=== PATIENT | female | born 1950 | race Caucasian/White ===

== ENCOUNTER 2017-04-20 10:21 | Day surgery (SDC) | payer BC ==
[~2017-04-20 10:21] MED LIST: ACET-812 PO; AMLO1CAP PO; ASPI-611 PO; CALC-1197 PO; CLOB50FO8 TP; CYCL-394 PO; DOXY-200 PO; ERGO400C PO; HYDR-3717 PO; MULT-1141 PO
[2017-04-20] MEDS ORDERED: ACET-2812 PO (10:47)
[2017-04-20] MEDS ORDERED: DULO-31 PO (10:50)
[2017-04-20 11:50] LABS: BASOPHILS % (AUTO) 0.7 % (0-1); EOSINOPHILS # (AUTO) 0.3 X10'3 (0-0.9); EOSINOPHILS % (AUTO) 4.1 % (0-6); LYMPHOCYTES # (AUTO) 1.6 X10'3 (1.1-4.8); LYMPHOCYTES % (AUTO) 23.3 % (21-51); MEAN CORPUSCULAR HEMOGLOBIN 31.1 PG (27.0-31.0); MEAN CORPUSCULAR HGB CONC 35.3 % (33.0-36.5); MEAN CORPUSCULAR VOLUME 88.2 FL (78-98); MEAN PLATELET VOLUME 8.6 FL (7.4-10.4); MONOCYTES # (AUTO) 0.6 X10'3 (0-0.9); MONOCYTES % (AUTO) 8.1 % (2-12); NEUTROPHILS # (AUTO) 4.4 X10'3 (1.8-7.7); NEUTROPHILS % (AUTO) 63.8 % (42-75); PRE OP HEMATOCRIT 37.7 % (35.0-45.0); PRE OP HEMOGLOBIN 13.3 g/dL (12.0-16.0); PRE OP PLATELET COUNT 256 X10'3 (140-440); RED BLOOD COUNT 4.27 X10'6 (4.20-5.60); RED CELL DISTRIBUTION WIDTH 14.2 % (11.5-14.5)
[2017-04-20 12:00] LABS: PRE OP PROTIME 10.4 SECONDS (9.0-12.0)
[2017-04-20 12:04] LABS: ALBUMIN 4.2 G/DL (3.4-5.0); ALBUMIN/GLOBULIN RATIO 1.2 (1.1-1.5); ALKALINE PHOSPHATASE 78 IU/L (46-116); BLOOD UREA NITROGEN 22 MG/DL (7-18); BUN/CREATININE RATIO 20.4 (6.6-38.0); CALCIUM 9.2 MG/DL (8.5-10.1); CHLORIDE 104 MMOL/L (99-107); CREATININE 1.08 MG/DL (0.40-0.90); PRE OP ALT 41 U/L (30-65); PRE OP ANION GAP 9 (8-16); PRE OP AST 24 U/L (10-37); PRE OP BILIRUB, TOTAL 0.6 MG/DL (0.0-1.0); PRE OP GLUCOSE 92 MG/DL (70-104); PRE OP POTASSIUM 4.1 MMOL/L (3.4-5.1); PRE OP SODIUM 142 MMOL/L (135-145); TOTAL CARBON DIOXIDE 29.1 MMOL/L (24-32); TOTAL PROTEIN 7.8 G/DL (6.4-8.2); eGFR 51 ML/MIN
== END 2017-04-20 16:00 | disposition home or self-care (01) ==
LOC: PRE-OP 10:21
PROVIDERS: ATTEND Surgery
DX: K43.2 Incisional hernia without obstruction or gangrene (principal); E66.9 Obesity, unspecified; M19.90 Unspecified osteoarthritis, unspecified site; I10 Essential (primary) hypertension; Z53.8 Procedure and treatment not carried out for other reasons; Z86.73 Personal history of transient ischemic attack (TIA), and cerebral infarction without residual deficits; Z98.890 Other specified postprocedural states; Z90.5 Acquired absence of kidney; Z79.82 Long term (current) use of aspirin; Z79.01 Long term (current) use of anticoagulants; Z79.899 Other long term (current) drug therapy; Z88.6 Allergy status to analgesic agent; Z99.2 Dependence on renal dialysis; Z88.3 Allergy status to other anti-infective agents; Z88.8 Allergy status to other drugs, medicaments and biological substances
CPT/HCPCS: 36415; 71046; 80053; 85025; 85610; 85730; 86885; 86900; 86901; 87070; 93005

== ENCOUNTER 2017-12-31 08:55 | Emergency (ER) | payer BC, MEDICARE ==
[~2017-12-31] VITALS: Ht 154.9 cm; Wt 97.0 kg
[~2017-12-31 08:55] MED LIST changes: +ACET-76 PO; -ACET-812 PO; +ACET325C PO; +DICL100G15 TOP; -DOXY-200 PO; +DULO-31 PO; -ERGO400C PO
[2017-12-31 08:59] VITALS: BP 143/73
[2017-12-31] MEDS ORDERED: ACET-3068 PO (09:36)
== END 2017-12-31 09:46 | disposition home or self-care (01) ==
LOC: ER 08:55
DX: S86.811A Strain of other muscle(s) and tendon(s) at lower leg level, right leg, initial encounter (principal); I12.9 Hypertensive chronic kidney disease with stage 1 through stage 4 chronic kidney disease, or unspecified chronic kidney disease; N18.9 Chronic kidney disease, unspecified; E66.01 Morbid (severe) obesity due to excess calories; Z86.73 Personal history of transient ischemic attack (TIA), and cerebral infarction without residual deficits; Z98.890 Other specified postprocedural states; Z56.0 Unemployment, unspecified; Z88.5 Allergy status to narcotic agent; Z88.6 Allergy status to analgesic agent; Z88.1 Allergy status to other antibiotic agents; Z88.8 Allergy status to other drugs, medicaments and biological substances; Z88.2 Allergy status to sulfonamides; Z79.82 Long term (current) use of aspirin; Z79.899 Other long term (current) drug therapy; W01.0XXA Fall on same level from slipping, tripping and stumbling without subsequent striking against object, initial encounter; Y93.89 Activity, other specified; Y92.89 Other specified places as the place of occurrence of the external cause; Y99.8 Other external cause status
CPT/HCPCS: 73564; 99284

== ENCOUNTER 2019-02-01 09:06 | Outpatient (CLI) | payer OTHER ==
[2019-02-01] VITALS (10 sets, daily range): BP systolic 140–161; BP diastolic 79–90
[~2019-02-01] VITALS: Ht 157.5 cm; Wt 98.0 kg
[~2019-02-01 09:06] MED LIST changes: -ACET325C PO; +ACET325C3 PO
[2019-02-01] MEDS ORDERED: nitroGLYCERIN 0.4mg SUBLingual tab SL PRN (11:00)
[2019-02-01] MEDS ORDERED: regadenoson 0.4mg/5ml syringe IV ONE (11:00)
[2019-02-01] MEDS ORDERED: aminophylline 250mg/10ml inj. IV PRN (11:00)
[2019-02-01] MEDS ORDERED: normal saline 500ml IV soln 500 ML IV ONE (11:00)
== END 2019-02-01 23:59 | disposition home or self-care (01) ==
LOC: RAD 09:06
PROVIDERS: ATTEND Internal Medicine Cardiovascular Disease
DX: Z01.810 Encounter for preprocedural cardiovascular examination (principal); I10 Essential (primary) hypertension; R07.9 Chest pain, unspecified
CPT/HCPCS: 76937; 78452; 93017; A9500; J0280; J2785; J7040

== ENCOUNTER 2023-01-21 07:24 | Day surgery (SDC) | payer MEDICARE, OTHER ==
[2023-01-13 15:50] LABS: ALBUMIN 4.2 G/DL (3.4-5.0); ALBUMIN/GLOBULIN RATIO 1.2 (1.1-1.5); ALKALINE PHOSPHATASE 95 IU/L (46-116); BLOOD UREA NITROGEN 65 MG/DL (7-18); BUN/CREATININE RATIO 41.9 (10.0-20.0); CALCIUM 9.6 MG/DL (8.5-10.1); CHLORIDE 105 MMOL/L (99-107); CREATININE 1.55 MG/DL (0.40-0.90); PRE OP ALT 28 U/L (30-65); PRE OP ANION GAP 11 (8-16); PRE OP AST 17 U/L (10-37); PRE OP BILIRUB, TOTAL 0.5 MG/DL (0.0-1.0); PRE OP GLUCOSE 122 MG/DL (70-104); PRE OP POTASSIUM 4.4 MMOL/L (3.4-5.1); PRE OP SODIUM 137 MMOL/L (135-145); TOTAL CARBON DIOXIDE 20.8 MMOL/L (24-32); TOTAL PROTEIN 7.8 G/DL (6.4-8.2); eGFR 33 ML/MIN
[2023-01-13 17:14] LABS: BASOPHILS % (AUTO) 0.3 % (0-1); EOSINOPHILS % (AUTO) 0 % (0-6); LYMPHOCYTES # (AUTO) 1.1 X10'3 (1.1-4.8); LYMPHOCYTES % (AUTO) 9.3 % (21-51); MEAN CORPUSCULAR HEMOGLOBIN 31.1 PG (27.0-31.0); MEAN CORPUSCULAR HGB CONC 33.7 g/dL (33.0-36.5); MEAN CORPUSCULAR VOLUME 92.5 FL (78-98); MEAN PLATELET VOLUME 8.8 FL (7.4-10.4); MONOCYTES # (AUTO) 0.5 X10'3 (0-0.9); MONOCYTES % (AUTO) 4.2 % (2-12); NEUTROPHILS # (AUTO) 10.4 X10'3 (1.8-7.7); NEUTROPHILS % (AUTO) 86.2 % (42-75); PRE OP HEMATOCRIT 32.6 % (35.0-45.0); PRE OP PLATELET COUNT 296 X10'3 (140-440); PRE OP WHITE BLOOD COUNT 12.1 10'3 (4.8-10.8); RED BLOOD COUNT 3.53 X10'6 (4.20-5.60); RED CELL DISTRIBUTION WIDTH 13.4 % (11.5-14.5)
[~2023-01-21] VITALS: Ht 154.9 cm; Wt 90.0 kg
[2023-01-21] VITALS (8 sets, daily range): BP systolic 87–166; BP diastolic 59–122; PULSE 57–64; RESP 12–16; TEMP 97.7; O2SAT 96–100
[~2023-01-21 07:24] MED LIST changes: +ASCO-134 PO; +ATOR40TA72 PO; +BIOT10004 PO; -CALC-1197 PO; +CALC-1215 PO; -DICL100G15 TOP; +DOCUMENT DATE & TIME OF BETA-BLOCKER PO ONE; -DULO-31 PO; +METO-395 PO; +cefazolin 2gm/D5W 100mL 100 ML IV ONE; +famotidine 20mg tablet PO ONE; +ringers solution, lacted 1,000 ML IV SCH
[2023-01-21] MEDS ORDERED: labetalol 20mg/4ml (5mg/ml) syringe IV PRN (08:35)
[2023-01-21] MEDS ORDERED: ondansetron/PF 4mg/2ml inj IV PRN (08:35)
[2023-01-21] MEDS ORDERED: ringers solution, lacted 1,000 ML IV SCH (08:35)
[2023-01-21] MEDS ORDERED: acetaminophen 1,000mg/100ml IV 100 ML IV PRN (08:35)
[2023-01-21] MEDS ORDERED: HYDROmorphone/PF 0.2 MG/ML SYRINGE IV PRN ×2 (08:35)
[2023-01-21] MEDS ORDERED: hydrALAZINE 20mg/ml inj. IV PRN (08:35)
[2023-01-21] MEDS ORDERED: fentaNYL/PF 50MCG/1 ML 2ML syringe IV PRN ×2 (08:35)
[2023-01-21] MEDS ORDERED: proCHLORperazine 10 MG/2 ml inj IV PRN (08:35)
[2023-01-21] MEDS ORDERED: midazolam 1 mg/ML 2ml injection ONE (09:55)
[2023-01-21] MEDS ORDERED: fentaNYL/PF 50MCG/1 ML 2ML syringe ONE (09:55)
[2023-01-21] MEDS ORDERED: LIDOcaine 0.5% (5mg/ml) 50ml vial ONE (09:56)
[2023-01-21] MEDS ORDERED: BUPIVAcaine/PF 2.5mg/ml (0.25%) 10ml vial ONE (10:00)
[2023-01-21] MEDS ORDERED: propofol inj 20 ML IV ONE (10:56)
--- NOTE | 2023-01-21 10:59 | NUR ---
Received from OR via STRETCHER, accompanied by Anesthesiologist BRETT and report given by Anesthesiolgist. PT IS WIDE AWAKE AND ALERT. O2 DC'D ON ARRIVAL... MAINTAINING SAO2 AT >96%. DENIES OPERATIVE SITE PAIN, BUT REPORTS STOMACH DISCOMFORT THAT MAY BE NAUSEA OR PAIN. MONITOR SR, BORDERLINE SB.20 G IV PATENT TO R AC. MOVING ALL EXTREMITIES. Addendum: 01/21/23 at 1135 by [place] Stahl RN Amended: Links added.
--- NOTE | 2023-01-21 11:20 | NUR ---
PT HAS SPLINT TO R MIDDLE FINGER - STATES SHE CUT HER FINGER A WEEK AGO AND WAS SEEN AT [facility]. FINGER WAS SUTURED, AND THERE IS A SPLINT IN PLACE. SHE IS ABLE TO REMOVE SPLINT. DISSOVABLE SUTURES IN PLACE. NO S/S INFECTION. FINGER TIP IS SOMEWHAT MITRA. DR. ABREU EXAMINED THE FINGER AND STATES IT MAY BE DRESSED W/ GAUZE DRESSING. STATES HEALING WNL. Addendum: 01/21/23 at 1139 by Florida Stahl RN Amended: Links added.
--- NOTE | 2023-01-21 11:59 | NUR ---
PT FULLY AWAKE AND ALERT. EXPERIENCED NAUSEA/STOMACH DISCOMFORT ON ADMISSION - TOOK WATER, APPLESAUSE AND CRACKERS WHICH LED TO EMESIS OF SMALL AMOUNT OF CLEAR MUCOUSY FLUID. MEDICATED W/ ZOFRAN W/ RELIEF OF NAUSEA/STOMACH DISCOMFORT. NO OPERATIVE SITE PAIN. L FORARM ELEVATED AND ICE IN PLACE. AMBULATED TO TOILET IN ROOM AND VOIDED "SMALL" AMOUNT. NO LIGHTHEADEDNESS WHEN UPRIGHT AND W/ AMBULATION. IV DC'D. DISCHARGED TO SPOUSE VIA WITHOUT INCIDENT. Addendum: 01/21/23 at 1243 by Florida Stahl RN Amended: Links added. Addendum: 01/21/23 at 1244 by Florida Stahl RN DRY GAUZE DRESSING TO R MIDDLE FINGER. INSTRUCTED ON BASIC WOUND CARE.
== END 2023-01-21 11:59 | disposition home or self-care (01) ==
LOC: PAS 07:24
PROVIDERS: ATTEND Orthopaedic Surgery Hand Surgery
DX: M18.12 Unilateral primary osteoarthritis of first carpometacarpal joint, left hand (principal); M65.332 Trigger finger, left middle finger; G56.02 Carpal tunnel syndrome, left upper limb; I10 Essential (primary) hypertension; G47.33 Obstructive sleep apnea (adult) (pediatric); G89.29 Other chronic pain; Z86.73 Personal history of transient ischemic attack (TIA), and cerebral infarction without residual deficits; Z96.653 Presence of artificial knee joint, bilateral; Z98.890 Other specified postprocedural states; Z93.2 Ileostomy status; Z90.5 Acquired absence of kidney; Z86.14 Personal history of Methicillin resistant Staphylococcus aureus infection; Z88.8 Allergy status to other drugs, medicaments and biological substances; Z88.5 Allergy status to narcotic agent; Z91.041 Radiographic dye allergy status; Z79.82 Long term (current) use of aspirin; Z79.899 Other long term (current) drug therapy
CPT/HCPCS: 25310; 25447; 26055; 36415; 64721; 80053; 82948; 85025; 93005; J0690; J2250; J2405; J2704; J3010; J3490; J7030; J7120; Z7506; Z7508; Z7512; A4215; A4618; A7000

== ENCOUNTER 2024-01-23 05:56 | Day surgery (SDC) | payer OTHER, MEDICARE ==
[2024-01-12 09:59] LABS: BASOPHILS % (AUTO) 0.4 % (0-1); EOSINOPHILS # (AUTO) 0.1 X10'3 (0-0.9); EOSINOPHILS % (AUTO) 1.7 % (0-6); LYMPHOCYTES # (AUTO) 1.2 X10'3 (1.1-4.8); LYMPHOCYTES % (AUTO) 17.7 % (21-51); MEAN CORPUSCULAR HEMOGLOBIN 32.3 PG (27.0-31.0); MEAN CORPUSCULAR HGB CONC 34.2 g/dL (33.0-36.5); MEAN CORPUSCULAR VOLUME 94.6 FL (78-98); MEAN PLATELET VOLUME 7.8 FL (7.4-10.4); MONOCYTES # (AUTO) 0.4 X10'3 (0-0.9); MONOCYTES % (AUTO) 6.5 % (2-12); NEUTROPHILS # (AUTO) 4.8 X10'3 (1.8-7.7); NEUTROPHILS % (AUTO) 73.7 % (42-75); PRE OP HEMATOCRIT 34.3 % (35.0-45.0); PRE OP HEMOGLOBIN 11.7 g/dL (12.0-16.0); PRE OP PLATELET COUNT 234 X10'3 (140-440); PRE OP WHITE BLOOD COUNT 6.6 10'3 (4.8-10.8); RED BLOOD COUNT 3.63 X10'6 (4.20-5.60); RED CELL DISTRIBUTION WIDTH 14.2 % (11.5-14.5)
[2024-01-12 10:18] LABS: ALBUMIN 3.8 G/DL (3.4-5.0); ALBUMIN/GLOBULIN RATIO 1.2 (1.1-1.5); ALKALINE PHOSPHATASE 58 IU/L (46-116); BLOOD UREA NITROGEN 46 MG/DL (7-18); BUN/CREATININE RATIO 32.9 (10.0-20.0); CALCIUM 9.1 MG/DL (8.5-10.1); CHLORIDE 106 MMOL/L (99-107); PRE OP ALT 42 U/L (30-65); PRE OP ANION GAP 8 (8-16); PRE OP AST 21 U/L (10-37); PRE OP BILIRUB, TOTAL 0.9 MG/DL (0.0-1.0); PRE OP GLUCOSE 86 MG/DL (70-104); PRE OP POTASSIUM 4.6 MMOL/L (3.4-5.1); PRE OP SODIUM 138 MMOL/L (135-145); TOTAL CARBON DIOXIDE 24.3 MMOL/L (24-32); eGFR 37 ML/MIN
[2024-01-23] VITALS (10 sets, daily range): BP systolic 110–143; BP diastolic 59–98; PULSE 60–65; RESP 15–18; TEMP 98.7; O2SAT 93–99
[~2024-01-23] VITALS: Ht 152.4 cm; Wt 85.7 kg
[~2024-01-23 05:56] MED LIST changes: -ACET-76 PO; -ACET325C3 PO; -ASCO-134 PO; -BIOT10004 PO; -CALC-1215 PO; +CETI10CA PO; -CLOB50FO8 TP; -CYCL-394 PO; +DEXA0.5S PO; -DOCUMENT DATE & TIME OF BETA-BLOCKER PO ONE; +DULO30CA52 PO; -HYDR-3717 PO; -MULT-1141 PO; +TRAZ-251 PO; -cefazolin 2gm/D5W 100mL 100 ML IV ONE; -famotidine 20mg tablet PO ONE
[2024-01-23] MEDS: famotidine 20mg tablet PO ONE (06:19)
[2024-01-23] MEDS: DOCUMENT DATE & TIME OF BETA-BLOCKER PO ONE (06:19)
[2024-01-23] MEDS: ceFAZolin 2gm in dextrose, iso 50 ML IV ONE (06:19)
[2024-01-23] MEDS ORDERED: LIDOcaine 2% (20mg/ml) 5ml vial ONE (06:48)
[2024-01-23] MEDS ORDERED: BUPIVAcaine/PF 2.5mg/ml (0.25%) 10ml vial ONE (06:48)
[2024-01-23] MEDS ORDERED: LIDOcaine 1% (10mg/ml)w/preservative inj. 20ml MDV ONE (08:13)
[2024-01-23] MEDS ORDERED: fentaNYL/PF 50MCG/1 ML 2ML syringe ONE (08:33)
[2024-01-23] MEDS ORDERED: MIDAZolam 1 MG/ML 5ML VIAL ONE (08:33)
[2024-01-23] MEDS ORDERED: ketorolac trometh 30MG/ML vial 30 MG/ML VIAL ONE (08:40)
[2024-01-23] MEDS: oxyCODONE/APAP 5-325mg tablet PO ONE (10:31)
== END 2024-01-23 10:43 | disposition home or self-care (01) ==
LOC: PAS 05:56
PROVIDERS: ATTEND Orthopaedic Surgery Hand Surgery
DX: M65.321 Trigger finger, right index finger (principal); M65.331 Trigger finger, right middle finger; M65.311 Trigger thumb, right thumb; M18.11 Unilateral primary osteoarthritis of first carpometacarpal joint, right hand; I10 Essential (primary) hypertension; I25.10 Atherosclerotic heart disease of native coronary artery without angina pectoris; E78.5 Hyperlipidemia, unspecified; G47.33 Obstructive sleep apnea (adult) (pediatric); M81.0 Age-related osteoporosis without current pathological fracture; M19.90 Unspecified osteoarthritis, unspecified site; Z86.73 Personal history of transient ischemic attack (TIA), and cerebral infarction without residual deficits; Z79.82 Long term (current) use of aspirin; Z79.899 Other long term (current) drug therapy; Z96.653 Presence of artificial knee joint, bilateral; Z90.5 Acquired absence of kidney; Z98.890 Other specified postprocedural states; Z88.5 Allergy status to narcotic agent; Z91.041 Radiographic dye allergy status; Z88.8 Allergy status to other drugs, medicaments and biological substances
CPT/HCPCS: 25312; 25447; 26055; 36415; 80053; 82948; 85025; J0690; J1885; J2250; J3010; J3490; J7030; J7120; Z7506; Z7512; A4215; A4618; A6449; A7000; J2003